=== PATIENT | female | born 1995 | race African-American/Black ===

== ENCOUNTER → 2020-05-14 13:11 | Outpatient (CLI) | payer BC, SELFPAY ==
--- NOTE | ~2020-05-14 | CT_ITS ---
EXAMINATION: CT abdomen pelvis w con DATE: 05/14/2020 13:57 INDICATION: Left lower quadrant and right lower quadrant pain. History of ulcers. TECHNIQUE: Computed tomography (CT) of the abdomen and pelvis was performed with 100 cc Omnipaque 350 intravenous contrast. The dose-length product was 331.00 mGy-cm. Automated exposure control and iter ative reconstruction technique were employed. COMPARISON: None. FINDINGS: Lung bases are unremarkable. No significant pleural or pericardial effusion. Lung bases are unremarkable. Heart size normal. The liver, spleen, pancreas, adrenal glands and kidneys are unremarkable. Gallbladder is present. Emery dder wall is mildly thickened. Consider cystitis in the appropriate clinical setting. There are folli cular changes in the left ovary. Nonobstructive bowel gas pattern. No significant vascular abnormalit y. No lymphadenopathy. There is fluid in the endometrium which is mildly thickened. There are cysts o f the vagina bilaterally, right greater than left, likely Bartholin's cysts or vaginal inclusion cyst s. IMPRESSION: 1. Mild bladder wall thickening. Consider cystitis in the appropriate clinical setting. 2: Mild endometrial thickening, likely related to patient's menstrual cycle. 3: Cysts of the vagina bilaterally, right greater than left, likely Bartholin's cysts or vaginal incl usion cysts. Reviewed, dictated and finalized at location A. IMPRESSION: 1. Mild bladder wall thickening. Consider cystitis in the appropriate clinical setting. 2: Mild endometrial thickening, likely related to patient's menstrual cycle. 3: Cysts of the vagina bilaterally, right greater than left, likely Bartholin's cysts or vaginal inclusion cysts.
== END ==
DX: R10.32 Left lower quadrant pain (principal); K36 Other appendicitis; N32.9 Bladder disorder, unspecified; R93.89 Abnormal findings on diagnostic imaging of other specified body structures; N89.8 Other specified noninflammatory disorders of vagina
CPT/HCPCS: 74177; Q9967

== ENCOUNTER 2021-07-01 16:23 | Outpatient (CLI) | payer BC, SELFPAY ==
[2021-07-01 17:02] LABS: Add Urine Microscopic? YES; Appearance Urine Cloudy (Clear); Bacteria Urine Trace /hpf; Bilirubin Urine Negative (Negative); Blood Urine Negative (Negative); Color Urine Straw (Yellow); Glucose Urine UA Negative (Negative); Ketones Urine Negative (Negative); Leukocyte Esterase Ur Trace LEU/UL (NEGATIVE); Nitrate Urine Negative (Negative); Protein Urine Negative (Negative); RBC Urine 0-2 /hpf (0-2); Specific Grav Ur 1.005 (1.001-1.035); Squamous Epithelial Cell Urine Many /hpf (Few); Urobilinogen Urine Negative mg/dL (<2.0); WBC Urine 0-3 /hpf (0-3)
[2021-07-01 17:04] LABS: Anion Gap 8 mmol/L (8-16); Blood Urea Nitrogen 6 mg/dL (7-17); Calcium 9.2 mg/dL (8.4-10.2); Carbon Dioxide 25 mmol/L (22-30); Chloride 107 mmol/L (98-107); Estimated Glomerular Filt Rate > 60; Glucose 82 mg/dL (65-110); Potassium 3.8 mmol/L (3.4-5.0); Sodium 140 mmol/L (137-145)
[2021-07-01 18:29] LABS: Hepatitis B Surface Antigen Negative (Negative)
[2021-07-01 18:35] LABS: HAV RESULT Negative (Negative); Hepatitis B Core IgM Result Negative (Negative)
[2021-07-01 18:46] LABS: Hepatitis C Virus Antibody Negative (Negative)
[2021-07-04 14:53] LABS: GGT 9 U/L (3-40)
== END 2021-07-01 16:24 | disposition home or self-care (01) ==
PROVIDERS: PCP Emergency Medicine; Visit Provider Emergency Medicine
DX: E16.2 Hypoglycemia, unspecified (principal); N39.0 Urinary tract infection, site not specified; R74.01 Elevation of levels of liver transaminase levels
CPT/HCPCS: 36415; 80048; 80074; 81001; 82977; 87086

== ENCOUNTER 2021-07-22 08:10 | Outpatient (CLI) | payer BC, SELFPAY ==
--- NOTE | ~2021-07-22 | US_ITS ---
US breast BI complete DATE: 07/22/2021 09:32 INDICATION: Bilateral breast pain. Intermittent left breast mass. TECHNIQUE: Complete bilateral breast ultrasound examination COMPARISON: None FINDINGS: Right breast: 12:00 8 cm from nipple: 9.3 x 4.9 x 8.1 mm cyst 1:00 8 cm from nipple: 8.7 x 3.0 x 8.4 mm simple cyst 2:00 11 cm from nipple: Parallel circumscribed heterogeneous hypoechoic 10.5 x 11.3 x 3.6 mm solid le carlos with minimal internal vascularity, no posterior shadowing, likely benign, probably a small fibro adenoma 3:00 6 cm from nipple: 4.1 x 2.0 x 4.2 mm parallel circumscribed largely sonolucent lesion with throu gh transmission, benign in appearance Left breast: 1:00 7 cm from nipple: 4.2 x 1.8 x 2.4 mm minimally septated probable cysts 2:00 6 cm from nipple: 21.7 x 17.1 x 5.9 mm simple cyst 3:00 8 cm from nipple: Septated 7.3 x 2.5 x 5.0 mm cyst 5:00 4 cm from nipple: 4 x 3.7 x 2.6 mm circumscribed parallel hypoechoic lesion with through transmi ssion and posterior enhancement, likely a complicated cyst or small fibroadenoma Subareolar: 20.6 x 16.9 x 7.2 mm parallel circumscribed hypoechoic solid lesion with mild internal va scularity, likely of fibroadenoma Subareolar: 7.9 x 2.8 x 7.2 mm parallel circumscribed hypoechoic solid lesion, likely a benign fibroa denoma 10:00 8 cm from nipple: Parallel circumscribed 2.9 x 1.5 x 2.7 mm hypoechoic lesion without internal vascularity or posterior shadowing, likely benign IMPRESSION: BI-RADS Category 2: Benign findings Reviewed, dictated and finalized at Location A. Reviewed, dictated and finalized at location A. NG CAGE WORKER
--- NOTE | ~2021-07-22 | US_ITS ---
US right upper quadrant INDICATION: Elevated liver function tests PROCEDURE: Realtime right upper abdominal ultrasound. COMPARISON: No prior studies for comparison. FINDINGS: The pancreas is normal without focal mass or pancreatic ductal dilation. Liver echotexture is normal without focal mass or intrahepatic biliary dilatation. There is normal directional flow i n the portal vein. The gallbladder is normal without stones, gallbladder wall thickening or pericholecystic fluid. Comm on bile duct measures 4 mm. No sonographic Purdy's sign. IMPRESSION: 1: Normal limited abdominal ultrasound. Reviewed, dictated and finalized at location B. ODY ASSISTANT
== END 2021-07-22 08:11 | disposition home or self-care (01) ==
PROVIDERS: PCP Emergency Medicine; Visit Provider Emergency Medicine
DX: N64.4 Mastodynia (principal); N60.02 Solitary cyst of left breast; N60.01 Solitary cyst of right breast; N63.11 Unspecified lump in the right breast, upper outer quadrant; N63.23 Unspecified lump in the left breast, lower outer quadrant; N63.12 Unspecified lump in the right breast, upper inner quadrant; N63.42 Unspecified lump in left breast, subareolar
CPT/HCPCS: 76641; 76705

== ENCOUNTER 2021-09-08 15:03 | Outpatient (CLI) | payer BC, SELFPAY ==
[2021-09-08 15:47] LABS: Erythrocyte Sedimentation Rate 18 mm/hr (0-20)
[2021-09-08 17:07] LABS: Anion Gap 11 mmol/L (8-16); Blood Urea Nitrogen 8 mg/dL (7-17); Calcium 9.3 mg/dL (8.4-10.2); Carbon Dioxide 25 mmol/L (22-30); Chloride 104 mmol/L (98-107); Estimated Glomerular Filt Rate > 60; Glucose 79 mg/dL (65-110); Potassium 3.8 mmol/L (3.4-5.0); Rheumatoid Factor < 8.6 IU/ML (<12); Sodium 140 mmol/L (137-145)
[2021-09-08 18:14] LABS: Folic Acid 12.8 ng/mL (2.76->20)
[2021-09-12 03:05] LABS: Insulin Level Total 4.3 uIU/mL (<=19.6)
== END 2021-09-08 15:04 | disposition home or self-care (01) ==
PROVIDERS: PCP Emergency Medicine; Visit Provider Emergency Medicine
DX: E16.2 Hypoglycemia, unspecified (principal); R53.83 Other fatigue; R20.0 Anesthesia of skin
CPT/HCPCS: 36415; 80048; 82607; 82746; 83525; 85652; 86038; 86430

== ENCOUNTER 2023-03-23 14:59 | Outpatient (CLI) | payer BC, SELFPAY ==
--- NOTE | ~2023-03-23 | US_ITS ---
EXAMINATION: US OB follow up DATE: 03/23/2023 17:35 INDICATION: Size greater than dates during third trimester TECHNIQUE: Real-time ultrasound of the pelvis was performed. The interpreting radiologist was not pre sent for the study. COMPARISON: None. FINDINGS: There is a single living fetus in vertex presentation. The placenta is posterior/to the mat ernal left and 7.1 cm from the internal cervical os. The cervical length is 5.9 cm cardiac acti vity and movement are noted. heart rate is 137 beats per minute (bpm). The amniotic fluid index is 21.5 cm which is normal (normal range: 8.1 cm to 24.8 cm). The following biometric data were obtained: Biparietal diameter (BPD): 8.4 cm; head circumference (HC): 31.4 cm; abdominal circumference (AC): 29 .8 cm; femur length (FL): 6.5 cm. These measurements are concordant. Estimated weight is 2319 g +/- 347 g, which correlates with the 42nd percentile when 05/04/2023 is used as estimated date of delivery. As single measurements, these parameters are each equal to the following estimated gestational ages w ith ranges of +/- 2 standard deviations: BPD: 33 weeks 6 days +/- 3 weeks 1 days. HC: 35 weeks 2 days +/- 3 weeks 0 days. AC: 33 weeks 6 days +/- 3 weeks 0 days. FL: 33 weeks 6 days +/- 3 weeks 0 days. estimated gestational age based solely on measurements from this exam is 34 weeks 2 days +/- 2 weeks 3 days. IMPRESSION: 1. Single living fetus in vertex presentation. 2. Normal amniotic fluid index. 3. Estimated weight is 2319 g +/- 347 g, which correlates with the 42nd percentile when 05/04/20 23 is used as estimated date of delivery. Reviewed, dictated and finalized at location F. IMPRESSION: 1. Single living fetus in vertex presentation. 2. Normal amniotic fluid index. 3. Estimated weight is 2319 g +/- 347 g, which correlates with the 42nd p ercentile when 05/04/2023 is used as estimated date of delivery.
[2023-03-23 16:38] LABS: Hematocrit 39.2 % (37.0-47.0); Hemoglobin 12.6 g/dL (12.0-15.0)
[2023-03-23 17:22] LABS: HIV 1/2 Ab P24 Ag Result Negative (Negative)
[2023-03-23 17:29] LABS: Vitamin D 25 Hydroxy 34.8 ng/mL
[2023-03-23 17:40] LABS: Glucose 1 Hour 71 mg/dL
== END 2023-03-23 15:00 | disposition home or self-care (01) ==
PROVIDERS: PCP Emergency Medicine; Visit Provider Obstetrics & Gynecology Gynecology
DX: O36.63X0 Maternal care for excessive fetal growth, third trimester, not applicable or unspecified (principal); Z3A.34 34 weeks gestation of pregnancy
CPT/HCPCS: 36415; 76816; 82306; 85014; 85018; 86703; G0432

== ENCOUNTER 2023-04-30 16:09 | Inpatient (IN) | payer MEDICAID, SELFPAY ==
[2023-04-30] VITALS (18 sets, daily range): BP systolic 118–136; BP diastolic 72–87; PULSE 78–107; RESP 16–18; TEMP 36.3–36.5; O2SAT 98; BMI 34.7
[2023-04-30 16:47] LABS: Basophils Percent Auto 0.1 % (0.2-1.2); Eosinophils Percent Auto 0.2 % (0-4.4); Hemoglobin 11.2 g/dL (12.0-15.0); Immature Granulocyte Absolute 0.13 K/mm3 (0.00-0.031); Immature Granulocyte Percent A 1.4 % (0-0.5); Lymphocytes Absolute Auto 1.77 K/mm3 (0.9-3.2); Lymphocytes Percent Auto 18.6 % (18.3-44.2); Mean Corpuscular Hemoglobin 30.1 pg (26-34); Mean Corpuscular Volume 94.1 fl (80-100); Mean Platelet Volume 11.6 fl (7.4-10.4); Monocytes Absolute Auto 0.7 K/mm3 (0.1-0.6); Monocytes Percent Auto 7.4 % (2.6-8.5); Neutrophils Absolute Auto 6.9 K/mm3 (1.3-6.7); Neutrophils Percent Auto 72.3 % (45.5-73.1); Platelet Count Result 145 k/mm3 (150-375); Red Blood Count 3.72 M/mm3 (4.2-5.4); Red Cell Distribution Width 12.7 % (11.5-14.5); White Blood Count 9.5 K/mm3 (4.5-10.0)
--- NOTE | 2023-04-30 16:49 | LDADM ---
This patient, Meg Holland, was admitted to Labor/Delivery/Recovery 108 on 04/30/23 at 16:09. Plans for labor, pain management and were discussed with patient. Patient/family oriented to hospital policies and general routines including ID bracelet, bed and alarms, visiting hours, pain management, procedures, bathroom and other care routines, personal items, smoking policy, room service/diet and guest tray routines, security routines, and visiting hours. Patient/Family are encouraged to report perceived risks to care and to ask questions if they do not understand what they are told or what they should do. See OBIX for further documentation.
[2023-04-30] MEDS: DINOPROSTONE 10 MG VAG INSERT VAGINAL (17:20)
--- NOTE | 2023-04-30 19:14 | WPDANESEPP ---
Anes - Eval Pre Procedure Procedure: labor epidural Date/Time: 04/30/23 19:14 Pre Op Diagnosis: IOL Patient Data Age: 27 Gender: F Height: 1.57 m Weight: 86 kg Last Vital Signs Temp 36.5 C 04/30/23 17:06 Pulse 95 04/30/23 18:59 BP 126/78 04/30/23 18:59 Allergies Allergy/AdvReac Type Severity Reaction Status Date / Time No Known Allergies Allergy Mild none Uncoded 04/04/23 14:29 Home Medications Medication Instructions Recorded Confirmed Type cholecalciferol (vitamin D3) 125 5,000 unit PO DAILY 04/04/23 04/30/23 History mcg (5,000 unit) capsule (Dialyvite Vitamin D) vit#24-iron amino acid 1 tablet PO DAILY 04/04/23 04/30/23 History chelat-folic acid 30 mg-975 mcg tablet Laboratory Tests 04/30/23 16:35 WBC 9.5 K/mm3 (4.5-10.0) RBC 3.72 L M/mm3 (4.2-5.4) Hgb 11.2 L g/dL (12.0-15.0) Hct 35.0 L % (37.0-47.0) MCV 94.1 fl (80-100) MCH 30.1 pg (26-34) MCHC 32.0 g/dl (32-36) RDW 12.7 % (11.5-14.5) Plt Count 145 L k/mm3 (150-375) MPV 11.6 H fl (7.4-10.4) Immature Gran % (Auto) 1.4 H % (0-0.5) Neut % (Auto) 72.3 % (45.5-73.1) Lymph % (Auto) 18.6 % (18.3-44.2) Galax % (Auto) 7.4 % (2.6-8.5) Eos % (Auto) 0.2 % (0-4.4) Baso % (Auto) 0.1 L % (0.2-1.2) Lymph # (Auto) 1.77 K/mm3 (0.9-3.2) Galax # (Auto) 0.7 H K/mm3 (0.1-0.6) Eos # (Auto) 0.0 K/mm3 (0-0.3) Baso # (Auto) 0.0 K/mm3 (0.0-0.1) Abs Immat Gran (auto) 0.13 H K/mm3 (0.00-0.031) Absolute Neuts (auto) 6.9 H K/mm3 (1.3-6.7) Absolute Nucleated RBC 0.0 K/mm3 (0.0-0.012) Nucleated RBC % 0.0 % (0.0-0.2) RPR Pending Blood Type B Positive Antibody Screen Negative Patient hx anesthesia problems: none Family hx anesthesia problems: none Results Review: All pre-operative results and documents have been reviewed as part of the pre-operative evaluation. [facility] Past Medical History Medical History Duodenal ulcer with hemorrhage Family History Family History Father No problems noted. Mother No problems noted. Sibling No problems noted. Sibling No problems noted. Sibling No problems noted. Sibling No problems noted. Other Unknown family medical history Social History Social History Smoking status: Never smoker Second hand tobacco smoke exposure: No Substance use: never Lack of Transportation: No Lack of Food: Never True Current Housing: I Have Housing Concerned About Future Housing: No Difficulty Paying Gas/Electric Bills: No Difficulty Paying for Meds: No Currently Unemployed: YES Education: Decline to Answer Difficulty w/ Childcare or Family Care: No Spiritual care concerns: No Exam Day of Procedure 04/30/23 19:14 Patient weight: obese Heart: regular rate and rhythm Lungs: normal air movement Airway: Mallampati scale Neurological: alert and oriented
[2023-05-01] VITALS (206 sets, daily range): BP systolic 96–269; BP diastolic 48–216; PULSE 72–107; RESP 16; TEMP 36.1–37; O2SAT 95–100
[2023-05-01] MEDS: OXYTOCIN 30 UNITS/NS 500 ML 30 UNITS/500 ML BAG 6 UNITS IV CONT (05:58)
[2023-05-01] MEDS: LACTATED RINGERS 1,000 ML 125 ML IV CONT ×3 (05:59→20:05)
--- NOTE | 2023-05-01 12:47 | PM.OBPNLAB ---
Pain Control Date/time seen: 05/01/23 12:40 Pain control: tolerating well (breathing through contractions) Pelvic Exam Dilation (cm): 1 (1.5) Effacement (%): 50 station: -3 Amniotic membrane status: Intact Comments: Moderate consistency Contractions Monitor mode: External Contraction pattern: Regular Contraction intensity: Moderate Status status: Category l Assessment and Plan Pitocin rate (mU/min): 8 Assessment: induction ongoing Comments: CNM To bedside. Discussed plan of care. Due to moderate consistency of cervix prefer to delay amniotomy at this time. Discussed option of placing Cook catheter and patient is agreeable. A catheter placed through cervix and uterine balloon inflated with 80 mL sterile saline. Vaginal balloon also inflated with 80 mL. Patient tolerated procedure well with mild discomfort. Will titrate Pitocin as needed to achieve adequate contraction pattern. Once Cook catheter is expelled and the cervix is more favorable will discuss option of amniotomy at that time. Anticipate vaginal . Dr. Hebert updated.
--- NOTE | 2023-05-01 12:51 | WPDOBADMIT ---
Obstetrics - Admit Note Admission Note: record reviewed. No pertinent additions to the history and/or any subsequent changes in the physical findings that are not consistent with the expected course of the were found. Additions to the history and/or subsequent changes in the physical findings follow. None.
[2023-05-01 15:31] LABS: Rapid Plasma Reagin Non-Reactive (NonReactive)
--- NOTE | 2023-05-01 17:43 | PM.OBPNLAB ---
Pain Control Date/time seen: 05/01/23 17:43 Pain control: tolerating well and epidural Pelvic Exam Dilation (cm): 3 (1.5) Effacement (%): 90 station: -3 Amniotic membrane status: Intact Comments: SVE performed around cook catheter. Bloody show WNL Contractions Monitor mode: External Contraction frequency: 3 (2-4) Contraction duration: 70 Contraction pattern: Regular Contraction intensity: Moderate Status status: Category l Assessment and Plan Assessment: induction ongoing Plan: continuous present management
[2023-05-02] VITALS (288 sets, daily range): BP systolic 98–141; BP diastolic 39–89; PULSE 31–128; RESP 16–18; TEMP 36.2–37.9; O2SAT 73–100
[2023-05-02] MEDS: OXYTOCIN 30 UNITS/NS 500 ML 30 UNITS/500 ML BAG IV CONT (04:05)
[2023-05-02] MEDS: LACTATED RINGERS 1,000 ML 125 ML IV CONT ×2 (04:05→12:09)
--- NOTE | 2023-05-02 07:22 | PM.OBPNLAB ---
Pain Control Date/time seen: 05/02/23 07:15 Pain control: tolerating well and epidural Pelvic Exam Dilation (cm): 5 (1.5) Effacement (%): 90 station: -1 Amniotic membrane status: Bulging Comments: head well applied to cervix. Contractions Monitor mode: External Contraction frequency: 3 (2-4) Contraction duration: 80 Contraction pattern: Regular Contraction intensity: Moderate Status status: Category ll Comments: occasional variable decelerations, +accelerations and moderate variability Assessment and Plan Pitocin rate (mU/min): 4 Assessment: induction ongoing Plan: continuous present management Comments: CNM to bedside. Discussed plan of care an option for amniotomy and IUPC placement. Discussed risks, benefits, and expectations of breaking water. Patient is agreeable. Amniotomy performed and there was a moderate return of clear amniotic fluid. IUPC inserted easily and returned with clear amniotic fluid. Patient tolerated procedure well. Plan to titrate pitocin as needed to achieve adequate contraction pattern. Dr. Rowan updated.
[2023-05-02] MEDS: ACETAMINOPHEN 325 MG TABLET (16:55)
--- NOTE | 2023-05-02 17:31 | PM.OBPNLAB ---
Pain Control Date/time seen: 05/02/23 17:10 Pain control: tolerating well and epidural Pelvic Exam Dilation (cm): 10 (1.5) Effacement (%): 100 station: +2 Amniotic membrane status: Ruptured Contractions Monitor mode: Internal Contraction frequency: 3 (2-4) Contraction duration: 80 Contraction pattern: Regular Contraction intensity: Strong/Firm Status status: Category ll Assessment and Plan Assessment: induction ongoing Plan: continuous present management Comments: Plan to start pushing with contractions. Dr. Rowan updated.
[2023-05-02] MEDS: OXYTOCIN 30 UNITS/NS 500 ML 30 UNITS/500 ML BAG 125 UNITS IV CONT (18:22)
--- NOTE | 2023-05-02 18:28 | PM.OBPRVD ---
OB - Delivery Note Procedure Delivery date: 05/02/23 Procedure: Events: Elective Induction of Labor Induction method: Per Cervidil Protocol Delivery augmentation: Rupture of Membranes Delivery monitor: External FHT, External Uterine and Internal Uterine Route of delivery: Episiotomy description: None Laceration Description: Periurethral (bilateral) Specimen: Yes (sent to pathology due to variable decelerations) Quantitative Blood Loss (ml): 150 Anesthesia type: Epidural Disposition: Floor Complications: Very brief shoulder dystocia. 10 seconds. Resolved with Kirill position. Narrative: Patient arrived for elective induction of labor. Induction started with Cervidil. she then received a Cook catheter and pitocin for cervical ripening. Membranes were ruptured and she slowly progressed to complete dilation. She pushed very well and delivered the head over intact perineum. There is no restitution. There was no further descent with maternal expulsive efforts. A shoulder dystocia was called and the patient was assisted to Kirill position. About 10 seconds later, the anterior (right) shoulder delivered. She easily delivered the posterior (left) shoulder and the rest of the . The infant was placed on the maternal abdomen and care was transferred to the nursery staff. The cord was doubly clamped and cut. Cord blood, cord segment, and cord gases were obtained. The placenta delivered spontaneously in the Schultze presentation. Bilateral first-degree periurethral lacerations were noted however they were hemostatic and did not require repair. The uterine tone remained firm. And there was excellent hemostasis. All delivery counts correct. Baby Date of : 05/02/23 Time of : 17:51 Weeks of gestation at delivery: 39 gender: Male Weight (pounds): 7 Weight (ounces): 4 presentation: vertex position: Left Occiput Anterior Placenta delivery description: Spontaneous and Normal Configuration Cord Vessel Description: 3 Vessels and Clamped/Cut score one minute: 7 score five minutes: 9
--- NOTE | 2023-05-02 18:38 | PM.OBDSVD ---
DS: Admitting Diagnosis Discharge Date 05/04/23 Admitting Diagnosis 27 y.o. G2PO at 39 weeks 3 days Elevtive IOL Uterine Fibroids Carrier of Alpha Thalasemia Peptic ulcer dx 2020 DS: Discharge Diagnosis Discharge Diagnosis (1) (normal spontaneous vaginal delivery): Code(s): O80 - Encounter for full-term uncomplicated delivery Status: Acute (2) Patient is a currently breast-feeding mother: Code(s): Z39.1 - Encounter for care and examination of lactating mother Status: Acute (3) Uterine fibroids affecting : Code(s): O34.10 - Maternal care for benign tumor of corpus uteri, unspecified trimester; D25.9 - Leiomyoma of uterus, unspecified Status: Acute (4) Alpha thalassemia silent carrier: Code(s): D56.3 - Thalassemia minor Status: Acute OB - DS: Summary Hospital Course Hospital Course: Uncomplicated OB Procedures : Ultrasound OB Procedures Intrapartum: Spontaneous Vag Delivery OB Procedures: : None Peripartum Data Delivery Method: Natural Vaginal Laceration Description: Periurethral (bilateral, no repair required) Episiotomy description: None complications: none Status at Discharge Overall status at discharge: patient is progressing back to baseline Time Spent with Patient Time attestation: Total time spent providing and/or coordinating discharge services: Exam Narrative: Alert and oriented. Mood is pleasant and cooperative. Perineum with minimal edema. Fundus firm and below umbilicus. Const: General: cooperative, healthy appearing, no acute distress and alert Orientation/consciousness: patient oriented x3 Limitations: no limitations Resp: Effort & Inspection: normal respiratory effort and able to speak in complete sentences Auscultation: clear to auscultation bilaterally Cardio: Rate: regular rate GI: Inspection: normal to inspection Auscultation: normal bowel sounds : General: Yes bladder normal to palpation Speculum Exam - Vagina: vaginal bleeding Bimanual exam- vagina & uterus: bladder normal to palpation OB/external & speculum: vaginal bleeding Other: Fundus firm and below U Skin: General skin exam: normal color and no rashes or lesions noted Neuro: General: patient oriented x3 and moves all extremities Cognition (Neuro): normal cognition Extrem: General: normal to inspection and no calf tenderness Psych: Appearance: grossly normal Mental Status: mental status grossly normal Affect: normal affect Thought process: Normal thought process present DS: Data Data Completed and Pending Pending studies at discharge: Pending at discharge 05/02/23 18:07 Surgical [PTH] Routine Discharge Plan Discharge Attending physician on discharge: Eryn Marroquin Discharging Clinician: Bailey Nicholson Anticipated Discharge Date/Time: 05/04/23 13:43 Patient Disposition: Home, Self-Care Activity: may shower Diet: as tolerated and regular Wound Care Instructions: follow printed instructions Discharge Instructions: Continue taking your vitamin and any other supplements as previously directed (Examples: Iron, Vitamin D). You may take Tylenol 1000mg over the counter every 6 hours as needed for pain. Do not exceed 4000mg of Tylenol daily. You may continue using tucks pads and dermoplast spray if needed for a few more days. Patient Instructions: Antibiotic Form Stand Alone Forms: General Discharge Information Follow-up/Referrals: Bailey Nicholson, CNM [Certified Nurse Windsurfing Instructor] - (6 week visit) Discharge Medications: New ibuprofen 600 mg tablet 600 mg PO Q6H PRN (Reason: pain) Qty: 30 0RF ferrous sulfate 325 mg (65 mg iron) tablet 325 mg PO BID Qty: 60 0RF Continued cholecalciferol (vitamin D3) [Dialyvite Vitamin D] 125 mcg (5,000 unit) Capsule 5,000 unit PO DAILY Complete 30-975 mg-mcg Tablet 1 tablet PO DAILY
[2023-05-03 03:20] VITALS: BP 108/71; PULSE 108; RESP 16; TEMP 37; O2SAT 99
[2023-05-03 04:41] LABS: Hematocrit 32.5 % (37.0-47.0); Hemoglobin 10.5 g/dL (12.0-15.0)
[2023-05-03 07:05] VITALS: BP 119/81; PULSE 105; RESP 18; TEMP 37.1; O2SAT 99
--- NOTE | 2023-05-03 08:00 | P.PNOB_ITS ---
OB - PN: Subj Subjective Date/time seen: 05/03/23 1435 Patient comments: pain well controlled Clemons baby status: doing well (attempting to latch. Reports no successful breast feeds yet. ) feeding status: exclusively breast feeding Narrative: PPD1 from . Doing well. Urinating without difficulty. Denies passing any large clots. Denies dizziness with ambulating. Tolerating po food an fluids. Bonding with infant. OB - PN: Obj Data Labs 05/03/23 03:33 Labs: Laboratory Results - last 24 hr 05/03/23 03:33 Hgb 10.5 L Hct 32.5 L OB - PN A/P Assessment and Plan (1) (normal spontaneous vaginal delivery): Code(s): O80 - Encounter for full-term uncomplicated delivery Status: Acute (2) Patient is a currently breast-feeding mother: Code(s): Z39.1 - Encounter for care and examination of lactating mother Status: Acute (3) At risk for ineffective : Code(s): Z91.89 - Other specified personal risk factors, not elsewhere classified Status: Acute Assessment and Plan: plan consult Plan day: 1 Plan: routine care Time Spent With Patient Time: Total time spent is greater than 50% in coordination of care (as documented) at patient's floor/unit and/or counseling patient: Review of Systems Review of Systems: All systems reviewed & are unremarkable except as noted in HPI and below Exam Narrative: Alert and oriented. Mood is pleasant and cooperative. Perineum with minimal edema. Fundus firm and below umbilicus. Const: General: cooperative, healthy appearing, no acute distress and alert Orientation/consciousness: patient oriented x3 Limitations: no limitations Resp: Effort & Inspection: normal respiratory effort and able to speak in complete sentences Auscultation: clear to auscultation bilaterally Cardio: Rate: regular rate GI: Inspection: normal to inspection Auscultation: normal bowel sounds : General: Yes bladder normal to palpation Bimanual exam- vagina & aleshia salina: bladder normal to palpation OB/external & speculum: vaginal bleeding (WNL) Other: Fundus firm at U Skin: General skin exam: normal color and no rashes or lesions noted Neuro: General: patient oriented x3 and moves all extremities Cognition (Neuro): normal cognition Extrem: General: normal to inspection and no calf tenderness Psych: Appearance: grossly normal Mental Status: mental status grossly normal Affect: normal affect Thought process: Normal thought process present
--- NOTE | 2023-05-03 08:07 | PC.NURSE ---
On 05/03/23, the student, Eleanor Mckinney, provided care and completed [facility] documentation on this patient. I have reviewed the student's documentation and agree with the findings.
[2023-05-03] MEDS: CHOLECALCIFEROL 1,000 UNITS TABLET 5000 UNITS PO (08:20)
[2023-05-03] MEDS: MULTIVIT/MIN/PREN/FOL AC/IRON TABLET 1 TAB PO (08:21)
[2023-05-03] MEDS: DOCUSATE SODIUM 100 MG CAPSULE PO (08:21)
--- NOTE | 2023-05-03 09:31 | WPDANLDPN2 ---
Anes-Prog Note L&D Date/Time: 05/03/23 09:31 Comfortable throughout: labor and delivery Neuraxial method: epidural Epidural/Spinal procedure site: clean & non-tender Neuro status: Neuro function grossly intact. Cardiovascular status: normal Respiratory status: normal Airway patency: baseline Mental status: baseline Post-Op hydration status: normal Vital Signs: Last Vital Signs Temp 37.1 C 05/03/23 07:05 Pulse 105 H 05/03/23 07:05 Resp 18 05/03/23 07:05 BP 119/81 05/03/23 07:05 Pulse Ox 99 05/03/23 07:05 O2 Del Method Room Air 05/02/23 20:40 Pain score (VAS): 10 I/O: Intake & Output 05/02/23 05/03/23 05/03/23 23:59 07:59 15:59 Output Total 110 Balance -110 Post-procedural complaints: none Patient feedback: Patient satisfied with anesthetic care. Right foot lateral aspect of bottom on foot 6/10 Pain when standing/walking. Improves with rest. Most likely will improve on own, instructed to contact aneshesia department if worsens
--- NOTE | 2023-05-03 09:54 | PC.NURSE ---
[id number] Introduction were made with mother to assess needs. Mother is concerned her breast are too big to breastfeed and her nipples are not firm enough. Mother states her has not breastfed since last night and that was for a few sucks, then stopped. She used the nipple shield twice as well. Breast pump provided due to ineffective feedings. Instructions given on cleaning, care, usage, that there should be no pain, pumping schedule for milk production, collection, and storage of human milk. Parents are encouraged to record pumping schedule on the feeding sheet. Patient was assessed for correct placement, flange size, to pump for comfort and nipple stretching/stimulation for adequate milk production every 3 hours (8 times in 24 hours) 1-2 times at night. RNs name written on the communication board and mother was encouraged to place [id number] when infant returns to her stimulating with changing positioning and massage touch. ( is in the nursery for assessment and post circumcision) Mother voiced understanding of the education shared along with mom and baby guide for additional resource information. Reported to the primary RN.
--- NOTE | 2023-05-03 11:20 | PC.NURSE ---
[id number] Consulted with patient after being called for assistance. Mother works well with her infant with encouragement. Reviewed working with infant, supporting breast holding with a teacup hold, and how to protect the nipples with an optimal deep latch, good positioning, and good hand washing. Encouraged understanding the benefits of skin to skin, responding to feeding cues, frequencies of feeding 8-12 times in 24 hours (approximately 2-3 hours), duration of feedings, milk production, intake/output feeding sheet and signs of adequate intake encouraging swallowing at the breast. Reviewed positioning and alignment, supporting breast, off-centered (asymmetrical latch) and leading with the chin with big, open, wide gape. was not able to maintain latch without discomfort to mother. Once it appeared that infant latched optimally and sucked with rocking motion. Most of the attempts were unsuccessful with infant chomping or holding nipple in mouth. Nipple care reviewed with optimal latch, good positioning and using clean hands when feeding her and touching her breast. was syringe fed encouraging sucking on RNs gloved finger. Sucking was rare and most of the time chomped, however, infant did take 10mls of EBM with a syringe. Infant is gaggy at times during the feeding. Mother voiced understanding of the education shared, to call for assistance if the infant does not latch or if there is discomfort with . Reported to the primary RN.
[2023-05-03 13:30] VITALS: BP 104/72; PULSE 93; RESP 16; TEMP 37.2; O2SAT 99
[2023-05-03 19:50] VITALS: BP 96/57; PULSE 98; RESP 16; TEMP 36.7; O2SAT 99
--- NOTE | 2023-05-04 07:23 | P.PNOB_ITS ---
OB - PN: Subj Subjective Date/time seen: 05/04/23 07:10 Interval history: PPD 2 from . Doing well. Urinating without difficulty. Denies passing any large clots. Denies dizziness with ambulating. Tolerating po food an fluids. Bonding with . Worried about infants weight loss (5.7%) and having difficulty with latching him to the breast. Patient comments: pain well controlled Martin baby status: other (latching at times, supplementing with formula) feeding status: breast and bottle feeding OB - PN: Obj Data Labs 05/03/23 03:33 OB - PN A/P Assessment and Plan (1) (normal spontaneous vaginal delivery): Code(s): O80 - Encounter for full-term uncomplicated delivery Status: Acute Assessment and Plan: Lochia and Fundus WNL. (2) Patient is a currently breast-feeding mother: Code(s): Z39.1 - Encounter for care and examination of lactating mother Status: Acute (3) At risk for ineffective : Code(s): Z91.89 - Other specified personal risk factors, not elsewhere classified Status: Acute Assessment and Plan: plan assistance today. Reviewed post resources. Encouraged appointment with [facility] peer counselor. Plan day: 2 Plan: discharge home Time Spent With Patient Time: Total time spent is greater than 50% in coordination of care (as documented) at patient's floor/unit and/or counseling patient: Review of Systems Review of Systems: All systems reviewed & are unremarkable except as noted in HPI and below Exam Narrative: Alert and oriented. Mood is pleasant and cooperative. Perineum with minimal edema. Fundus firm and below umbilicus. Const: General: cooperative, healthy appearing, no acute distress and alert Orientation/consciousness: patient oriented x3 Limitations: no limitations Resp: Effort & Inspection: normal respiratory effort and able to speak in complete sentences Auscultation: clear to auscultation bilaterally Cardio: Rate: regular rate GI: Inspection: normal to inspection Auscultation: normal bowel sounds : General: Yes bladder normal to palpation Speculum Exam - Vagina: vaginal bleeding Bimanual exam- vagina & uterus: bladder normal to palpation OB/external & speculum: vaginal bleeding Other: Fundus firm and below U Skin: General skin exam: normal color and no rashes or lesions noted Neuro: General: patient oriented x3 and moves all extremities Cognition (Neuro): normal cognition Extrem: General: normal to inspection and no calf tenderness Psych: Appearance: grossly normal Mental Status: mental status grossly normal Affect: normal affect Thought process: Normal thought process present
[2023-05-04 08:00] VITALS: BP 111/75; PULSE 87; RESP 18; TEMP 36.2; O2SAT 100
[2023-05-04] MEDS: CHOLECALCIFEROL 1,000 UNITS TABLET 5000 UNITS PO (09:00)
[2023-05-04] MEDS: MULTIVIT/MIN/PREN/FOL AC/IRON TABLET 1 TAB PO (09:00)
--- NOTE | 2023-05-04 11:20 | PC.NURSE ---
[id number] * Purposefully rounded to assess needs. Mother and are sleeping in bed with mother on her side and on back safely supported with mothers arm circled around , bed flat and free of bulky blankets, pillows and mothers knee bent circling . Mother states she just fed infant. RN offers assistance with the next feeding and inquired how the last feeding has gone, if breastfed or bottle. Mother raises the bottle of formula and is unsure of how much has had. There is 2mls out of the bottle. Mother states she has been formula bottle feeding as she is not pumping any breastmilk at this time. There are several bottles on mothers night stand. Two are empty, one has 5mls of old breastmilk and two with formula. RN encouraged to work with mother with as that is mothers desire of how she wants to feed her infant and it has been several hours since infant has had an appropriate feeding. Reviewed and demonstrated stimulating with undressing, checking the diaper, burping, changing the position and placing upright [id number]. Once feeding cues were visualized was brought to the left breast to attempt using football positioning with a rolled blanket under mothers breast. Infant latches to the nipple and sucks but doesn't bring the breast into the mouth. At times holds the nipple in his mouth, doesn't open to latch, and will do a chomping motion. Infant is demonstrating late feeding cues and is brought to mothers chest to reorganize and reset for another attempt. Mother states she has pumped 4 times in the last 24hours. After unsuccessful attempts mother was encouraged to pump and increase her pumping to a more consistent level aiming for 8 times in 24 hours with 1-2 times at night. RN reviewed and demonstrated paced bottle feeding with mother during the pumping session. Mother pumps without pain and flange size is assessed appropriate. becomes gaggy after he is topped off at 10mls total of formula. Mother feels a bit overwhelmed at taking care of alone while dad is at work. Mother states she really wants to breastfeed. Encouraged mother to continue to practice and as the grows he may do better. Resources for outpatient were reviewed using the feeding sheet, mom/baby guide and [facility] website. Encouraged mother if she is overwhelmed to protect her milk with pumping and feed her with practicing as she is able. Encouraged mother to reach out for assistance while she is here and as needed at home. We reviewed using the resource of the mom/baby guide of how to protect for engorgement, plugged ducts and mastitis. Reminded mother of how and when to call ICP, , her OB or review resources provided. Discussed with Primary RN and Dr. Manzo of mothers concerns of going home and lack of awareness to wake and feed her or call for assistance, however the education was reviewed and mother was encouraged.
[2023-05-04 12:05] VITALS: BP 123/75; PULSE 82; RESP 18; TEMP 37; O2SAT 100
--- NOTE | 2023-05-04 15:41 | PC.NURSE ---
[id number] Purposefully rounded to assess needs. Mother has been practicing the plan, however, she is becoming more consistent, confident and capable over time. Mother states she likes the plan. has had appropriate feedings in the last 24 hours meets the outcomes for weight, output (recent void and stool within the hour) and jaundice at this time. Mother states she is confident to continue feeding her infant at home, when to call for assistance and denies any additional assistance or education at this time. Reinforced understanding of milk production, transition of milk, signs of adequate intake, transition of stool, prevention/relief of engorgement, plugged ducts, mastitis, responsive watching for feeding cues, feeding ondemand every 2-3 hours after the start of the last feeding, community resources and when to call a provider using the resource of the mom and baby guide. Mother voiced understanding of the education shared. Reported to the primary RN.
[2023-05-05 14:10] VITALS: BP 111/72; PULSE 96; RESP 18; TEMP 36.8
== END 2023-05-04 16:05 | disposition home or self-care (01) | DRG 542 ==
LOC: ANHLDR 05-02 18:44 → ANHOB2 05-02 20:41
PROVIDERS: Advanced Practice Midwife; Admitting Provider Obstetrics & Gynecology Gynecology; PCP Emergency Medicine; Visit Provider Obstetrics & Gynecology Gynecology
DX: O34.13 Maternal care for benign tumor of corpus uteri, third trimester (principal); Z37.0 Single live birth; D25.9 Leiomyoma of uterus, unspecified; Z3A.39 39 weeks gestation of pregnancy; O71.82 Other specified trauma to perineum and vulva; O36.8330 Maternal care for abnormalities of the fetal heart rate or rhythm, third trimester, not applicable or unspecified; O66.0 Obstructed labor due to shoulder dystocia; D56.3 Thalassemia minor
CPT/HCPCS: 36415; 84112; 85014; 85018; 85025; 86592; 86850; 86900; 86901; 88307; A9270; J2590; J2795; J7120